=== PATIENT | female | born 1975 | race Caucasian/White ===

== ENCOUNTER 2017-11-05 07:53 | Day surgery (SDC) | payer OTHER ==
[2017-11-03 17:32] LABS: Absolute Lymphocytes (CBC) 1.9 K/uL (0.7-4.9); Absolute Monocytes 0.4 K/uL (0.1-1.3); Basophils % 0.5 % (0-1.3); Hematocrit 37.9 % (36.0-45.0); Lymphocytes % 35.4 % (15.3-44.8); MCH 29.2 pg (27.0-35.0); MCV 88.7 fL (80-100); MPV 8.7 fL (7.6-11.3); Monocytes % 7.2 % (3.3-12.3); RBC Red Blood Cell Count 4.27 M/uL (3.86-4.86)
--- NOTE | 2017-11-03 17:35 | RAD REPORT ---
EXAM DESCRIPTION: RAD - Chest Pa And Lat (2 Views) - 11/03/2017 5:21 pm CLINICAL HISTORY: Preop chest, pending cholecystectomy COMPARISON: None. TECHNIQUE: PA and lateral views of the chest were obtained. FINDINGS: The lungs are clear. Heart size is normal and central vasculature is within normal limit s. No pleural effusion or pneumothorax seen. No acute bony finding noted. No aortic abnormality. IMPRESSION: No acute cardiopulmonary process.
[2017-11-03 17:56] LABS: Albumin 3.9 g/dL (3.4-5.0); Bilirubin Direct 0.2 mg/dL (0-0.2); Bilirubin Total 0.2 mg/dL (0.2-1.0); Protein, Total 7.8 g/dL (6.4-8.2)
[2017-11-03 18:23] LABS: BUN Blood Urea Nitrogen 10 mg/dL (7-18); Bicarbonate 30 mmol/L (21-32); Glucose Level 108 mg/dL (74-106); Potassium 3.5 mmol/L (3.5-5.1); Sodium Level 139 mmol/L (136-145)
--- NOTE | 2017-11-04 16:31 | EKG ---
Test Date: 2017-11-03 Test Time: 17:09:53 Calculating Machine Operator: MICHAEL MEASUREMENT RESULTS: Intervals: Rate: 70 VT: 158 QRSD: 84 QT: 370 QTc: 399 [place]: P: 70 VT: 158 QRS: 18 T: 45 INTERPRETIVE STATEMENTS: Normal sinus rhythm Low voltage QRS Borderline ECG No previous ECG available for comparison Electronically Signed On 11-04-17 16:27:58 CDT by Hitesh Bass
[2017-11-05] MEDS ORDERED: Ringers Lactate 1,000 ML IV ONE (08:16)
[2017-11-05 08:21] LABS: Specific Gravity > 1.030 (1.005-1.030)
[2017-11-05] MEDS ORDERED: CEFOXITIN/SWI 1gm 1 GM/10 ML SYR ONE (08:33)
[2017-11-05] MEDS ORDERED: BUPIVACAINE 0.5% PF 10 ML VIAL ONE (08:39)
[2017-11-05] MEDS ORDERED: FENTANYL CITR 100 MCG/2 ML ONE (09:00)
[2017-11-05] MEDS ORDERED: PROPOFOL 200 MG/20 ML VIAL IV ONE (09:00)
[2017-11-05] MEDS ORDERED: MIDAZOLAM HCL 2 MG/2 ML INJ ONE (09:00)
[2017-11-05] MEDS ORDERED: ROCURONIUM 50 MG/5 ML VIAL IV ONE (09:01)
[2017-11-05] MEDS ORDERED: DEXAMETHASONE 10 MG/ML VIAL ONE (09:12)
[2017-11-05] MEDS ORDERED: KETOROLAC 30 MG/ML INJ ONE ×2 (09:12→09:49)
[2017-11-05] MEDS ORDERED: ONDANSETRON HCL 40 MG/20 ML VIAL ONE (09:22)
[2017-11-05] MEDS ORDERED: NEOSTIGMINE 1 MG/ML -5 ML SYRINGE ONE (09:49)
[2017-11-05] MEDS ORDERED: GLYCOPYRROLATE 0.2 MG/ML SYR ONE (09:49)
[2017-11-05] MEDS: MEPERIDINE HCL 50 MG/ML AMP ONE ×4 (10:26→10:41)
[2017-11-05] MEDS ORDERED: PROMETHAZINE 25 MG/ML VIAL ONE (10:27)
[2017-11-05] MEDS ORDERED: CODEINE 30MG/APAP 300MG TAB ONE (13:57)
--- NOTE | 2017-11-05 15:34 | DS ---
Discharge Note: The patient will go Day Surgery and home when stable. Disposition: Home. Condition: Stable. Discharge Instructions: Resume home medications and diet. Activity as tolerated. No heavy lifting. Remove outer dressing in 2 days. Shower. Keep wound clean and dry. Follow up in my office in a w [facility] [employer] [facility] [place]. Call for appointment. Keep Steri-Strips on at all times. Incentive spirometer q.1 hour. KATHIE/CHAPITO Voice ID: [id number] Report ID: [id number]
--- NOTE | 2017-11-05 16:41 | OP ---
Date of Procedure: 11/05/2017 Surgeon: Jakob Denis MD Milling [employer]er Operator: NINO Mauricio. Preoperative Diagnosis: Symptomatic cholelithiasis. Postoperative Diagnosis: Symptomatic cholelithiasis. Procedure: Laparoscopic cholecystectomy. Estimated Blood Loss: Minimal. Specimen: Gallbladder. Findings: As above. Anesthesia: General. Complications: None. Disposition: The patient tolerated the procedure in stable condition and was taken to Recovery in go od general condition Procedure In Detail: The patient was brought to the OR and placed in supine position. General anest hesia was begun. The patient was prepped and draped in the usual sterile fashion. Marcaine 0.5% was infiltrated locally. A 15-blade was used to make a 1 cm supraumbilical midline incision. Subcutane ous tissue divided. The fascia was identified and divided. A #1 Vicryl stay suture was placed. Per itoneal cavity was entered with sharp and blunt dissection. A 12 mm trocar was placed into the perit chang cavity under direct vision. Pneumoperitoneum was established and then three 5-mm trocars were placed, 1 in the epigastrium just to the right of midline and 2 in the right subcostal region. Lapar oscopy revealed chronic inflammation of the gallbladder. Fundus retracted superiorly. Infundibulum was identified and retracted inferolaterally. Cystic duct and cystic artery were clearly identified with blunt dissection. Clips placed. Both structures were divided. Cautery was used to remove the gallbladder from the liver bed. Bleeding in the liver bed controlled with cautery. The gallbladder was retrieved through the umbilicus via an EndoCatch bag. Right upper quadrant was irrigated. Efflu ent was clear. No evidence of bleeding or bile leakage appreciated. Subsequently, all trocars were removed under direct vision. Stay sutures were tied to each other to reapproximate the fascial defec t. Subcutaneous wounds were irrigated. Bleeding controlled cautery. A 3-0 chromic used to reapprox imate the subcutaneous tissue and close the skin. Sterile dressing was applied. The patient was jessee kened and taken to Recovery in good general condition. /MODL Voice ID: [id number] Report ID: [id number]
== END 2017-11-05 15:00 | disposition home or self-care (01) ==
LOC: OR 07:53
PROVIDERS: ATTEND Surgery
PROC: 0FT44ZZ Resection of Gallbladder, Percutaneous Endoscopic Approach (ICD-10-PCS; principal; 2017-11-05 09:00)
DX: K80.10 Calculus of gallbladder with chronic cholecystitis without obstruction (principal); Z88.6 Allergy status to analgesic agent
CPT/HCPCS: 36415; 71046; 80048; 80076; 81025; 82150; 85025; 88304; 93005; J1100; J2175; J2250; J2405; J2550; J2710; J3010